=== PATIENT | male | born 1955 | race Caucasian/White ===

== ENCOUNTER 2016-11-01 06:18 | Day surgery (SDC) | payer MEDICARE, OTHER, SELFPAY ==
[~2016-11-01 06:18] MED LIST: ALPRAZolam 0.25 MG TAB PO PRN; ASPIRIN 325 MG TAB PO ONE; SODIUM CHLORIDE 0.9% 1,000 ML in EMPTY BAG 1 BAG IV ONE
[2016-11-01] MEDS ORDERED: MIDAZOLAM 2 MG/2 ML VIAL ONE (07:09)
[2016-11-01 07:10] LABS: Basophils % (A) 1 %; CH 29.7; CHCM 34.3; Eosinophils # (A) 0.2 k/uL (0-0.7); Eosinophils % (A) 3 %; HCT 37.3 % (39.0-53.0); HDW 2.85; HGB 12.5 gm/dL (13.0-17.5); Luc # (Auto) 0.25; Luc % (Auto) 3; Lymphocytes # (A) 1.4 k/uL (1.0-4.8); Lymphocytes % (A) 17 %; MCH 29.1 pg (25.0-35.0); MCHC 33.5 g/dL (31.0-37.0); MCV 86.9 fL (80.0-100.0); Mean Platelet Volume 8.2; Monocytes # (A) 0.5 k/uL (0-1.0); Monocytes % (A) 6 %; Neutrophils % (A) 71 %; RBC 4.29 m/uL (4.30-5.90); RDW 13.9 % (11.5-15.5); WBC 8.4 k/uL (3.8-10.6); WBC (Perox) 9.02
[2016-11-01] MEDS ORDERED: fentaNYL (PF) 50 MCG/ML 2 ML AMP ONE (07:10)
[2016-11-01] MEDS ORDERED: IV FLUID CONTINUATION 950 ML IV ONE (07:15)
[2016-11-01 07:21] LABS: Anion Gap 13 mmol/L; Blood Urea Nitrogen 14 mg/dL (9-20); Calcium 9.9 mg/dL (8.4-10.2); Carbon Dioxide 29 mmol/L (22-30); Chloride 99 mmol/L (98-107); Glucose 110 mg/dL (74-99); Non-African American GFR(MDRD) >60 (>60 ml/min/1.73 sqM); Potassium 4.3 mmol/L (3.5-5.1); Sodium 141 mmol/L (137-145)
[2016-11-01] MEDS ORDERED: BENZOCAINE SPRAY 100 APPLIC/CAN ONE (07:27)
[2016-11-01] MEDS ORDERED: MIDAZOLAM 2 MG/2 ML VIAL IV ONE ×2 (07:33→09:30)
[2016-11-01] MEDS ORDERED: BENZOCAINE SPRAY 100 APPLIC/CAN MUCOUS MEM ONE (07:33)
[2016-11-01] MEDS ORDERED: fentaNYL (PF) 50 MCG/ML 2 ML AMP IV ONE (07:35)
--- NOTE | 2016-11-01 08:04 | P.PCN ---
Date of Procedure: 11/01/16 Preoperative Diagnosis: aortic stenosis and bicuspid aortic valve Postoperative Diagnosis: Moderate aortic stenosis and bicuspid aortic valve is heavily calcified. Moderate plaque in the aorta.no PFO Description of Procedure: INDICATION : The procedure is being done to evaluate severity of the aortic stenosis. Transthoracic echo showed increasing gradient. CONSENT:verbal consent is obtained from family and the patient PROCEDURE: Patient was brought to the lab in a fasting state. He was prepped and draped in the usual fashion .The throat was sprayed with the Cetacaine. Patient was given IV Versed and fentanyl for sedation. The patient got 1 mg of Versed and 50 mg of fentanyl. An Omni probe was introduced in the oropharynx and was advanced into the esophagus. Multiple views were obtained. Patient tolerated the procedure well.both color and pulse wave Doppler was also done. Contrast bubble injections was also performed conscious sedation: Patient received conscious sedation of 15 minutes duration from 7:33 AM to 7:48 AM FINDINGS:The aorta is calcified and appears to be bicuspid.The valve area by planimetry was calculated as 1.3 cm. No significant aortic regurgitation. Aortic root diameter at the sinus level was 3.6 cm. The mitral valve appeared to show mild prolapse without any regurgitation. Interatrial septum is intact without any spontaneous shunt. Contrast saline bubble injection did not reveal any crossing of bubbles. The atrial appendages appeared to be relatively small but free of any clot. There is no reversal of flow in the pulmonary veins. Left lower function appear to be preserved. There is a moderate plaque in the aorta. IMPRESSION:.#1. Moderate to severe aortic stenosis #2. Bicuspid aortic valve is heavily calcified #3 . No evidence of PFO #4. No evidence of clot in left ventricular and age. #5. Left ventricular function appear to be preserved PLAN:proceed with cardiac catheterization for further assessment and also to rule out underlying ischemic heart disease.
[2016-11-01] MEDS: MIDAZOLAM 2 MG/2 ML VIAL IV ONE ×2 (08:17→09:15)
[2016-11-01] MEDS ORDERED: LIDOCAINE 2% INJ 20 MG/ML SQ ONE (08:19)
[2016-11-01 08:58] LABS: Site FA; Site PA
[2016-11-01 08:59] LABS: Site RA
--- NOTE | 2016-11-01 09:12 | P.PCN ---
Date of Procedure: 10/25/16 Preoperative Diagnosis: Aortic stenosis and positive stress test and symptoms of exertional shortness of breath Postoperative Diagnosis: Critical stenosis of the circumflex. Moderate disease in the right and mild to moderate disease in the LAD Procedure(s) Performed: Right and left heart catheterization Description of Procedure: HISTORY: This is a 61-year-old gentleman with history of hypertension and hypercholesteremia and also known bicuspid aortic valve was noted to have increasing gradient across the aortic valve suggestive of a moderate to severe aortic stenosis. Stress test also showed some possible ischemia of the inferior wall. Patient is advised to have a right and left heart catheterization for assessment of aortic stenosis and also coronary artery disease. CONSENT:I have discussed the risks, benefits and alternative therapies for the above-mentioned procedure and for both sedation/analgesia as well as necessary blood product administration, if indicated, as they pertain to this patient. The patient has indicated understanding and acceptance of the risks and procedures discussed. PROCEDURE: RIGHT HEART CATHETERIZATION: Patient was brought to the lab in a fasting state. Patient was given some IV sedation. The right groin is infiltrated with lidocaine. Right femoral vein was entered using Seldinger technique. Right heart catheterization performed using a [place]-Bay[place] catheter. Patient tolerated the procedure well. Hemostasis was obtained with manual compression. LEFT HEART CATHETERIZATION: The right groin is infiltrated with lidocaine and right femoral artery was entered using Seldinger technique. A 6-Ind[place]ian catheter was left in place and selective coronary arteriography was performed. Patient tolerated the procedure well. Patient went on to have stent placement of the circumflex by Dr. Sanders. The aortic valve could not be crossed with multiple attempts. However his cardiac output is more than several liters and by ARTIS the valve area is 1.3 square centimeters HEMODYNAMICS: RIGHT HEART CATHETERIZATION: The right atrial pressure is 5-8. Right ventricular pressure was 40/8. Pulmonary artery pressure was 40/13 and pulmonary wedge pressure is about 30. Cardiac output by thermodilution method is more than several liters. SELECTIVE CORONARY ARTERIOGRAPHY: LEFT MAIN: normal length and patent THE LEFT ANTERIOR DESCENDING CORONARY ARTERY: This is a good caliber vessel giving rise to several septal branches and a diagonal branch. The LAD appears to be free of any significant occlusive disease. THE LEFT CIRCUMFLEX AND IS CORONARY ARTERY: This is a good caliber vessel with about 90% stenosis of the mid circumflex after the OM branch. THE RIGHT CORONARY ARTERY: This is a dominant vessel with intermediate lesion with about 60-70% stenosis before the bifurcation to PDA and PLV LEFT VENTRICULOGRAPHY: not performed FINAL IMPRESSION: #1 coronary artery disease with critical lesion in the circumflex and moderate disease in the distal RCA. #2 mild pulmonary hypertension. #3. Moderate aortic stenosis by ARTIS. The aortic valve could not be crossed PLAN: stent placement of the circumflex. Possible FFR of the right. PROGNOSIS: fair
[2016-11-01] MEDS ORDERED: BIVALIRUDIN BOLUS 250 MG/50 ML IV ONE (09:13)
[2016-11-01] MEDS ORDERED: CLOPIDOGREL 75 MG TAB PO ONE (09:17)
[2016-11-01] MEDS ORDERED: BIVALIRUDIN 250 MG in SODIUM CHLORIDE 0.9% 50 ML IV ONE (09:17)
[2016-11-01] MEDS ORDERED: NITROGLYCERIN 1000MCG/10ML SYRINGE INTRACORON ONE (09:32)
[2016-11-01] MEDS ORDERED: HYDROcodone/APAP 7.5-325MG 1 EACH TAB PO PRN (09:44)
[2016-11-01] MEDS ORDERED: IPRATROPIUM 0.5 MG/2.5 ML NEBU INHALATION PRN (09:44)
[2016-11-01] MEDS ORDERED: ERYTHROMYCIN 5 MG/GM OPHTH OINT 3.5 GM TUBE LEFT EYE PRN (09:44)
[2016-11-01] MEDS ORDERED: IBUPROFEN 800 MG TAB PO PRN (09:44)
[2016-11-01] MEDS ORDERED: ALBUTEROL NEBULIZED 2.5 MG/3 ML INHALATION PRN (09:44)
[2016-11-01] MEDS ORDERED: IOHEXOL 350 MG/ML 100 ML BOTTLE INJ ONE (09:47)
[2016-11-01] MEDS ORDERED: MAG HYDROX/AL HYDROX/SIMETH 30 ML CUP PO PRN (09:48)
[2016-11-01] MEDS ORDERED: NITROGLYCERIN SL TABS 0.4 MG TAB SUBLINGUAL PRN (09:48)
[2016-11-01] MEDS ORDERED: RX INFO: IV CONTRAST WAS GIVEN 1 EACH MISC MISCELLANE PRN (09:48)
[2016-11-01] MEDS ORDERED: ATROPINE SULFATE 0.1 MG/ML 10ML SYRINGE IV PRN (09:48)
[2016-11-01] MEDS ORDERED: SODIUM CHLORIDE 0.9% 1,000 ML IV SCH (10:00)
[2016-11-01] MEDS ORDERED: IPRATROPIUM-ALBUTEROL 3 ML NEB INHALATION PRN (14:17)
[2016-11-01 15:16] VITALS: BMI 39.9
[2016-11-01] MEDS: SODIUM CHLORIDE 0.9% 1,000 ML IV SCH (15:42)
[2016-11-01] MEDS ORDERED: BACLOFEN 10 MG TAB PO SCH ×2 (16:00→21:00)
[2016-11-01] MEDS ORDERED: MONTELUKAST 10 MG TAB PO SCH (21:00)
[2016-11-01] MEDS ORDERED: ATORVASTATIN 80 MG TAB PO SCH (21:00)
[2016-11-01 21:29] LABS: Glucose,Whole Blood 133 mg/dL (75-99)
[2016-11-02 05:34] VITALS: RESP 19
[2016-11-02] MEDS: ALBUTEROL NEBULIZED 2.5 MG/3 ML INHALATION SCH ×3 (05:37→08:47)
[2016-11-02] MEDS: SYMBICORT 80-4.5 MCG INHALER INHALATION SCH ×2 (05:37→08:35)
[2016-11-02 06:29] LABS: Basophils % (A) 1 %; CH 29.5; CHCM 33.2; Eosinophils # (A) 0.3 k/uL (0-0.7); Eosinophils % (A) 3 %; HCT 38.7 % (39.0-53.0); HDW 2.75; HGB 12.6 gm/dL (13.0-17.5); Luc # (Auto) 0.22; Luc % (Auto) 3; Lymphocytes # (A) 1.3 k/uL (1.0-4.8); Lymphocytes % (A) 15 %; MCH 29.1 pg (25.0-35.0); MCHC 32.6 g/dL (31.0-37.0); MCV 89.3 fL (80.0-100.0); Monocytes # (A) 0.4 k/uL (0-1.0); Monocytes % (A) 5 %; Neutrophils # (A) 6.3 k/uL (1.3-7.7); Neutrophils % (A) 74 %; RBC 4.34 m/uL (4.30-5.90); RDW 13.9 % (11.5-15.5); WBC 8.6 k/uL (3.8-10.6); WBC (Perox) 8.65
[2016-11-02 06:47] LABS: Anion Gap 13 mmol/L; Blood Urea Nitrogen 14 mg/dL (9-20); Calcium 9.9 mg/dL (8.4-10.2); Carbon Dioxide 26 mmol/L (22-30); Chloride 100 mmol/L (98-107); Glucose 109 mg/dL (74-99); Non-African American GFR(MDRD) >60 (>60 ml/min/1.73 sqM); Potassium 4.6 mmol/L (3.5-5.1); Sodium 139 mmol/L (137-145)
--- NOTE | 2016-11-02 08:16 | P.DS ---
Providers Date of admission: 11/02/2016 Attending physician: Hilda Love Consults: 11/01/16 09:48 Consult Physician Routine Consulting Provider: [facility] Consult Reason/Comments: Post Interventional patient Do you want consulting provider notified?: Already Contacted Primary care physician: Kong Del Rio Kut - Discharge Diagnosis(es) (1) Coronary artery disease Current Visit: Yes Status: Acute (2) S/P coronary artery stent placement Current Visit: Yes Status: Acute (3) S/P coronary artery stent placement Current Visit: Yes Status: Acute (4) Moderate aortic stenosis Current Visit: Yes Status: Acute Hospital Course: This patient was brought in because of progressive aortic stenosis and positive stress test. Patient had a ARTIS examination which is consistent with moderate aortic stenosis with a valve area of 1.3. Cardiac catheterization revealed critical stenosis involving the midcircumflex and moderate disease in the distal right. Patient had a stent placement of the circumflex. Patient is feeling stable. Denies any chest pain or shortness of breath. His groin area soft without any hematoma. Pulses in the right foot are intact. Examination of the heart revealed systolic murmur as before. Lungs appeared to be clear. Pulses in the right foot are preserved. Patient is being discharged home to continue home medication except Motrin. He will be on Plavix and aspirin along with Lipitor. A prescription for Plavix and nitroglycerin provided. Patient is given usual instructions and advised not to lift any heavy weights. Patient is also advised not to take Motrin because of aspirin and Plavix and increased risk of bleeding. He is also instructed not to stop the Plavix and aspirin without informing us. He'll be seen in the office in one week. Plan - Discharge Summary New Discharge Prescriptions: Clopidogrel [Plavix] 75 mg PO DAILY #90 tab Nitroglycerin Sl Tabs [Nitrostat] 0.4 mg SUBLINGUAL Q5M PRN #25 tab PRN Reason: Chest Pain Discharge Medication List Albuterol Inhaler [Ventolin Hfa Inhaler] 2 puff INHALATION QID 10/29/16 [History ] Albuterol Nebulized [Ventolin Nebulized] 2.5 mg INHALATION QID PRN 10/29/16 [ History] Atorvastatin [Lipitor] 40 mg PO HS 10/29/16 [History] Baclofen 5 mg PO TID 10/29/16 [History] Erythromycin Ophth Oint [Romycin Ophth Oint] 1 applic LEFT EYE QID PRN 10/29/16 [History] Fenofibrate,Micronized [Fenofibrate] 134 mg PO DAILY 10/29/16 [History] Fluticasone/Salmeterol [Advair 250-50 Diskus] 1 inhalation PO BID 10/29/16 [ History] Hydrochlorothiazide [Hydrodiuril] 25 mg PO DAILY 10/29/16 [History] Hydrocodone/Acetaminophen [[place] 7.5-325] 0.5 tab PO TID PRN 10/29/16 [History] Ipratropium Nebulized [Atrovent Nebulized] 0.5 mg INHALATION QID PRN 10/29/16 [ History] Lisinopril [Zestril] 10 mg PO DAILY 10/29/16 [History] Montelukast [Singulair] 10 mg PO HS 10/29/16 [History] Omeprazole 20 mg PO DAILY 10/29/16 [History] Primidone [Mysoline] 50 mg PO DAILY 10/29/16 [History] Aspirin 325 mg PO DAILY tab 11/02/16 [Rx] Clopidogrel [Plavix] 75 mg PO DAILY #90 tab 11/02/16 [Rx] Nitroglycerin Sl Tabs [Nitrostat] 0.4 mg SUBLINGUAL Q5M PRN #25 tab 11/02/16 [Rx ] Follow up Appointment(s)/Referral(s): Hilda Love MD [STAFF PHYSICIAN] - 1 Week Discharge Disposition: HOME SELF-CARE
[2016-11-02] MEDS: SODIUM CHLORIDE 0.9% 1,000 ML IV SCH (08:30)
--- NOTE | 2016-11-02 08:41 | PTCA ---
DATE OF SERVICE: 11/01/2016 PERFORMING PHYSICIAN: Hermes Shi [email or web address] interface developer. PROCEDURE PERFORMED: Successful stenting of the mid left circumflex using 2.75 x 15 mm Xience MONIKA with a good angiographic results. INDICATION: This is a pleasant, 61-year-old gentleman who was experiencing chest discomfort and underwent a heart catheterization by Dr. Love and was found to have critical disease involving the mid left circumflex. Beside that he was found to have intermediate disease involving the distal right coronary artery. The decision was made toward percutaneous coronary intervention on the left circumflex. APPROACH: Right common femoral artery. COMPLICATIONS: None. LEVEL OF SEDATION: Moderate with sedation length of half an hour. PROCEDURE DESCRIPTION: After diagnostic heart catheterization was performed by Dr. Love, we decided to pursue with intervention on the left circumflex. Anticoagulation was initiated using Angiomax. The left main was engaged using JL 5 guiding catheter. The left circumflex was wired using a whisper wire. Initially used 20 x 12 mm balloon and then by 25 x 12 mm balloon. Subsequently, I deployed 275 x 15 mm Xience in the mid left circumflex were the stent was positioned under fluoroscopy guidance and deployed under 12 atmospheres for 20 seconds. The following angiogram showed good angiographic results. POSTPROCEDURE MANAGEMENT: 1. Dual antiplatelet therapy. 2. Risk factor modification. 3. Follow up with the patient.
[2016-11-02] MEDS ORDERED: FENOFIBRATE 160 MG TAB PO SCH (09:00)
[2016-11-02] MEDS ORDERED: CLOPIDOGREL 75 MG TAB PO SCH (09:00)
[2016-11-02] MEDS ORDERED: ASPIRIN 325 MG TAB PO SCH (09:00)
[2016-11-02] MEDS ORDERED: PRIMIDONE 50 MG TAB PO SCH (09:00)
[2016-11-02] MEDS ORDERED: LISINOPRIL 10 MG TAB PO SCH (09:00)
[2016-11-02] MEDS ORDERED: HYDROCHLOROTHIAZIDE 25 MG TAB PO SCH (09:00)
[2016-11-02] MEDS ORDERED: PANTOPRAZOLE 40 MG TABLET PO SCH (09:00)
[2016-11-02 09:32] VITALS: BP 140/67; PULSE 74; TEMP 97
== END 2016-11-02 10:57 | disposition home or self-care (01) ==
LOC: CATHCVL 06:18 → 6SEL 09:39 → CATHCVL 11-02 10:57
PROVIDERS: ATTEND Internal Medicine Cardiovascular Disease
DX: I25.10 Atherosclerotic heart disease of native coronary artery without angina pectoris (principal); I35.0 Nonrheumatic aortic (valve) stenosis; Q23.1 Congenital insufficiency of aortic valve; I70.0 Atherosclerosis of aorta; R07.89 Other chest pain; R94.39 Abnormal result of other cardiovascular function study; R42 Dizziness and giddiness; I27.2 Other secondary pulmonary hypertension; I10 Essential (primary) hypertension; E78.00 Pure hypercholesterolemia, unspecified; E78.5 Hyperlipidemia, unspecified; E11.9 Type 2 diabetes mellitus without complications; E66.9 Obesity, unspecified; Z68.38 Body mass index [BMI] 38.0-38.9, adult; Z79.1 Long term (current) use of non-steroidal anti-inflammatories (NSAID); Z79.51 Long term (current) use of inhaled steroids; Z79.899 Other long term (current) drug therapy; Z88.0 Allergy status to penicillin; Z87.891 Personal history of nicotine dependence
CPT/HCPCS: 94640 ×2; 93312; 93320; 93325; 93456; 80048 ×2; 85018; 82810; 85025 ×2; 99152 ×2; 99153; C9600; C1769 ×4; C1887; C1725 ×2; C1894 ×2; C1874; J2001; J2250; Q9967; J3010; J0583

== ENCOUNTER 2016-11-09 07:21 | Day surgery (SDC) | payer MEDICARE, OTHER, SELFPAY ==
[2016-11-08 08:44] VITALS: BMI 40.3
[~2016-11-09 07:21] MED LIST changes: +ALPRAZolam 0.5 MG TAB PO PRN; -ASPIRIN 325 MG TAB PO ONE; +ASPIRIN 325 MG TAB PO STA; +ATORVASTATIN 80 MG TAB PO STA; +NITROGLYCERIN SL TABS 0.4 MG TAB SUBLINGUAL PRN
[2016-11-09] MEDS ORDERED: diphenhydrAMINE 50 MG/ML 1 ML VIAL IVP ONE (09:38)
[2016-11-09] MEDS ORDERED: HYDROmorphone 2 MG/ML 1 ML SYRINGE IV ONE (09:39)
[2016-11-09] MEDS: MIDAZOLAM 2 MG/2 ML VIAL IV ONE ×2 (09:40→09:51)
[2016-11-09] MEDS ORDERED: LIDOCAINE 2% INJ 20 MG/ML SQ ONE ×2 (09:41)
[2016-11-09] MEDS ORDERED: BIVALIRUDIN BOLUS 250 MG/50 ML IV ONE (09:47)
[2016-11-09] MEDS ORDERED: BIVALIRUDIN 250 MG in SODIUM CHLORIDE 0.9% 50 ML IV ONE (09:48)
[2016-11-09] MEDS ORDERED: ADENOSINE 180 MG in SODIUM CHLORIDE 0.9% 30 ML IVP ONE (09:59)
[2016-11-09] MEDS ORDERED: NITROGLYCERIN 1000MCG/10ML SYRINGE INTRACORON ONE (10:10)
[2016-11-09] MEDS ORDERED: CLOPIDOGREL 75 MG TAB PO ONE (10:15)
[2016-11-09] MEDS ORDERED: niCARdipine Syringe (1,000 mcg/10 mL) INTRACORON ONE (10:26)
[2016-11-09] MEDS ORDERED: IOHEXOL 350 MG/ML 100 ML BOTTLE INJ ONE (10:28)
[2016-11-09] MEDS ORDERED: HYDROcodone/APAP 7.5-325MG 1 EACH TAB PO PRN (10:34)
[2016-11-09] MEDS ORDERED: ERYTHROMYCIN 5 MG/GM OPHTH OINT 3.5 GM TUBE LEFT EYE PRN (10:34)
[2016-11-09] MEDS ORDERED: NITROGLYCERIN SL TABS 0.4 MG TAB SUBLINGUAL PRN ×2 (10:34→10:35)
[2016-11-09] MEDS ORDERED: RX INFO: IV CONTRAST WAS GIVEN 1 EACH MISC MISCELLANE PRN (10:35)
[2016-11-09] MEDS ORDERED: ZOLPIDEM 5 MG TAB PO PRN (10:35)
[2016-11-09] MEDS ORDERED: ATROPINE SULFATE 0.1 MG/ML 10ML SYRINGE IV PRN (10:35)
[2016-11-09] MEDS ORDERED: MAG HYDROX/AL HYDROX/SIMETH 30 ML CUP PO PRN (10:35)
[2016-11-09] MEDS ORDERED: SODIUM CHLORIDE 0.9% 1,000 ML IV SCH (10:45)
[2016-11-09] MEDS ORDERED: IPRATROPIUM 0.5 MG/2.5 ML NEBU INHALATION SCH (13:00)
[2016-11-09] MEDS ORDERED: ALBUTEROL INHALER 60 PUFF/8 GM INHALER INHALATION SCH (13:00)
[2016-11-09] MEDS: BACLOFEN 10 MG TAB PO SCH ×2 (16:14→20:40)
[2016-11-09] MEDS: IPRATROPIUM-ALBUTEROL 3 ML NEB INHALATION SCH ×2 (19:49→19:58)
[2016-11-09] MEDS: SYMBICORT 80-4.5 MCG INHALER INHALATION SCH (19:50)
[2016-11-09] MEDS ORDERED: PNEUMOCOCCAL VACC-PNEUMOVAX 23 25 MCG/0.5 ML VIAL IM ONE (20:00)
--- NOTE | 2016-11-09 20:58 | PTCA ---
DATE OF SERVICE: 11/09/2016 PERFORMING PHYSICIAN: Hermes Shi M.D., online marketer. PROCEDURES PERFORMED: 1. Fractional flow reserve, FFR of the right coronary artery. 2. Successful stenting of the distal right coronary artery using a 3.25 x 15 mm Xience MONIKA which was post dilated using 3.5 mm balloon with good angiographic results. 3. Selective right common femoral artery angiogram. INDICATION: This is a pleasant 61-year-old gentleman who sees Dr. Love as an outpatient who was in the hospital a few weeks ago with acute coronary syndrome and underwent heart catheterization by Dr. Love where he was found to have severe disease involving the left circumflex, which was stented at that time, and intermediate disease involving the distal right coronary artery. He was brought today to undergo an FFR of the right coronary artery. APPROACH: Right common femoral artery. COMPLICATIONS: None. LEVEL OF SEDATION: Moderate. PROCEDURE DESCRIPTION: After obtaining informed consent, the patient was brought to the cardiac odd job laborer. The right common femoral artery was cannulated using micropuncture technique. The micropuncture wire passed easily, then I placed a 6 [place] sheath in the right common femoral artery. At that point anticoagulation was initiated using Angiomax. After that I advanced a JR4 guiding catheter to the ascending aorta. After zeroing the Doppler wire and equalizing between the Doppler wire and the guiding catheter, we did an FFR per IV adenosine infusion, where the Doppler wire was advanced distal to the lesion in the PDA branch of the RCA. The FFR came in to be 0.77. At that point I decided to stent the RCA. I advanced other wire, which was a Whisper wire. I did predilatation using a 2.5 x 12 mm balloon. Then I deployed a 3.25 x 15 mm Xience MONIKA, where the stent was positioned under fluoroscopic guidance, and it was deployed under 12 atmospheres for 20 seconds. Then I did post dilatation using 3.5 mm balloon. The following angiogram showed good angiographic results and the procedure was completed without any complication. POST-PROCEDURE MANAGEMENT: 1. Dual antiplatelet therapy. 2. Risk factor modifications. 3. Followup with the patient.
[2016-11-09] MEDS ORDERED: MONTELUKAST 10 MG TAB PO SCH (21:00)
[2016-11-09] MEDS ORDERED: ATORVASTATIN 40 MG TAB PO SCH (21:00)
--- NOTE | 2016-11-09 21:00 | LTR ---
November 09, 2016 RE: Shaw Whiting Dear Dr. Bo, Mr. Shaw Whiting underwent successful stenting of the right coronary artery with good angiographic results and without any complication. I would like to thank you for allowing me to participate in his care. Please do not hesitate to call with any questions or concerns. Sincerely, WILMER KELLEY MD
[2016-11-10 07:01] LABS: Anion Gap 12 mmol/L; Calcium 9.6 mg/dL (8.4-10.2); Carbon Dioxide 23 mmol/L (22-30); Chloride 103 mmol/L (98-107); Glucose 98 mg/dL (74-99); Non-African American GFR(MDRD) >60 (>60 ml/min/1.73 sqM); Sodium 138 mmol/L (137-145)
[2016-11-10 07:04] LABS: Blood Urea Nitrogen 14 mg/dL (9-20); Potassium 4.9 mmol/L (3.5-5.1)
[2016-11-10 07:28] LABS: Basophils # (A) 0.1 k/uL (0-0.2); Basophils % (A) 1 %; CH 28.9; CHCM 32.8; Eosinophils # (A) 0.2 k/uL (0-0.7); Eosinophils % (A) 3 %; HDW 2.82; HGB 12.3 gm/dL (13.0-17.5); Luc # (Auto) 0.15; Luc % (Auto) 2; Lymphocytes # (A) 1.1 k/uL (1.0-4.8); Lymphocytes % (A) 15 %; MCH 29.3 pg (25.0-35.0); MCHC 33.1 g/dL (31.0-37.0); MCV 88.3 fL (80.0-100.0); Mean Platelet Volume 7.2; Monocytes # (A) 0.5 k/uL (0-1.0); Monocytes % (A) 7 %; Neutrophils # (A) 5.1 k/uL (1.3-7.7); Neutrophils % (A) 72 %; RBC 4.19 m/uL (4.30-5.90); RDW 13.7 % (11.5-15.5); WBC 7.1 k/uL (3.8-10.6)
[2016-11-10] MEDS ORDERED: PANTOPRAZOLE 40 MG TABLET PO SCH (07:30)
[2016-11-10 08:14] VITALS: BP 127/68; RESP 16; TEMP 96.8
[2016-11-10] MEDS: SYMBICORT 80-4.5 MCG INHALER INHALATION SCH (08:54)
[2016-11-10] MEDS: IPRATROPIUM-ALBUTEROL 3 ML NEB INHALATION SCH (08:56)
[2016-11-10 08:59] VITALS: PULSE 88
[2016-11-10] MEDS ORDERED: CLOPIDOGREL 75 MG TAB PO SCH (09:00)
[2016-11-10] MEDS ORDERED: LISINOPRIL 10 MG TAB PO SCH (09:00)
[2016-11-10] MEDS ORDERED: PRIMIDONE 50 MG TAB PO SCH (09:00)
[2016-11-10] MEDS ORDERED: HYDROCHLOROTHIAZIDE 25 MG TAB PO SCH (09:00)
[2016-11-10] MEDS ORDERED: FENOFIBRATE 160 MG TAB PO SCH (09:00)
[2016-11-10] MEDS ORDERED: ASPIRIN 325 MG TAB PO SCH (09:00)
[2016-11-10] MEDS: BACLOFEN 10 MG TAB PO SCH (09:56)
--- NOTE | 2016-11-10 13:05 | DS ---
DATE OF ADMISSION: 11/09/2016 DATE OF DISCHARGE: 11/10/2016 BRIEF HISTORY: This is a pleasant, 61-year-old gentleman who sees Dr. Love as an outpatient, who was admitted to the hospital yesterday and underwent an FFR of the right coronary artery which came to be ischemic and subsequently underwent stenting of the RCA with a good angiographic result and without any complication. The procedure was performed from the right groin, which is soft and nontender and without any bruises. The patient is going to be discharged home on dual antiplatelet therapy and he needs to follow up with Dr. Love in the office as an outpatient.
== END 2016-11-10 10:53 | disposition home or self-care (01) ==
LOC: CATHCVL 07:21 → 6SEL 10:29 → CATHCVL 11-10 10:53
PROVIDERS: ATTEND Internal Medicine Interventional Cardiology
DX: I25.10 Atherosclerotic heart disease of native coronary artery without angina pectoris (principal); I35.8 Other nonrheumatic aortic valve disorders; I10 Essential (primary) hypertension; E78.00 Pure hypercholesterolemia, unspecified; R94.39 Abnormal result of other cardiovascular function study; I45.10 Unspecified right bundle-branch block; R94.31 Abnormal electrocardiogram [ECG] [EKG]; Z23 Encounter for immunization; E11.9 Type 2 diabetes mellitus without complications; E78.5 Hyperlipidemia, unspecified; E66.9 Obesity, unspecified; Z68.38 Body mass index [BMI] 38.0-38.9, adult; Z79.1 Long term (current) use of non-steroidal anti-inflammatories (NSAID); Z79.891 Long term (current) use of opiate analgesic; Z79.51 Long term (current) use of inhaled steroids; Z79.899 Other long term (current) drug therapy; Z88.0 Allergy status to penicillin; Z87.891 Personal history of nicotine dependence
CPT/HCPCS: 99152; 99153 ×2; 94640 ×3; 93571; 93454; 80048; 85025; 90732; C1769 ×4; C1887; C1725 ×2; C1894; C1874; G0009; J2001; J2250; J1170; J1200; Q9967; J0583; J0153